=== PATIENT | female | born 1975 | race Caucasian/White ===

== ENCOUNTER → 2016-12-05 | Outpatient (CLI) | payer OTHER | END | disposition home or self-care (01) | LOC: LABWHC1 06:42 | PROVIDERS: ATTEND Obstetrics & Gynecology Reproductive Endocrinology | DX: N97.8 Female infertility of other origin (principal) | CPT/HCPCS: 36415; 84144 ==

== ENCOUNTER → 2016-12-16 | Outpatient (CLI) | payer OTHER | END | disposition home or self-care (01) | LOC: LABWHC1 06:46 | PROVIDERS: ATTEND Obstetrics & Gynecology Reproductive Endocrinology | DX: Z32.00 Encounter for pregnancy test, result unknown (principal) | CPT/HCPCS: 36415; 84144; 84702 ==

== ENCOUNTER → 2016-12-18 | Outpatient (CLI) | payer OTHER ==
[2016-12-18 08:20] LABS: HCG,Quantitative Serum 4.8 mIU/mL
== END | disposition home or self-care (01) ==
LOC: LABWHC1 07:01
PROVIDERS: ATTEND Obstetrics & Gynecology
DX: Z13.29 Encounter for screening for other suspected endocrine disorder (principal)
CPT/HCPCS: 36415; 84144; 84443; 84702

== ENCOUNTER → 2017-01-06 | Outpatient (CLI) | payer OTHER | END | disposition home or self-care (01) | LOC: LABWHC1 06:46 | PROVIDERS: ATTEND Obstetrics & Gynecology Reproductive Endocrinology | DX: N97.8 Female infertility of other origin (principal) | CPT/HCPCS: 36415; 84144 ==

== ENCOUNTER → 2017-01-17 | Outpatient (CLI) | payer OTHER | END | disposition home or self-care (01) | LOC: LABWHC1 09:11 | PROVIDERS: ATTEND Obstetrics & Gynecology Reproductive Endocrinology | DX: Z32.00 Encounter for pregnancy test, result unknown (principal) | CPT/HCPCS: 36415; 84144; 84702 ==

== ENCOUNTER → 2017-01-20 | Outpatient (CLI) | payer OTHER | END | disposition home or self-care (01) | LOC: LABWHC1 09:25 | PROVIDERS: ATTEND Obstetrics & Gynecology Reproductive Endocrinology | DX: O09.01 Supervision of pregnancy with history of infertility, first trimester (principal); Z3A.00 Weeks of gestation of pregnancy not specified | CPT/HCPCS: 36415; 84144; 84443; 84702 ==

== ENCOUNTER → 2017-02-03 | Outpatient (CLI) | payer OTHER | END | disposition home or self-care (01) | LOC: LABWHC1 10:49 | PROVIDERS: ATTEND Obstetrics & Gynecology Reproductive Endocrinology | DX: O09.01 Supervision of pregnancy with history of infertility, first trimester (principal); Z3A.00 Weeks of gestation of pregnancy not specified | CPT/HCPCS: 36415; 84144; 84702 ==

== ENCOUNTER 2017-09-19 06:03 | Inpatient (IN) | payer OTHER ==
[2017-09-16 14:41] VITALS: BMI 23.8
[2017-09-19] MEDS ORDERED: ceFAZolin IN SWFI 2 GM/20 ML SYRINGE IVP ONE (06:16)
[2017-09-19] MEDS ORDERED: LACTATED RINGERS 1,000 ML IV ONE (06:16)
[2017-09-19] MEDS ORDERED: CITRIC ACID-SODIUM CITRATE 15 ML CUP PO ONE (06:16)
[2017-09-19 06:52] LABS: Basophils # (A) 0.1 k/uL (0-0.2); Basophils % (A) 1 %; Eosinophils # (A) 0.1 k/uL (0-0.7); Eosinophils % (A) 1 %; HGB 11.8 gm/dL (11.4-16.0); Lymphocytes # (A) 2.9 k/uL (1.0-4.8); Lymphocytes % (A) 30 %; MCH 32.3 pg (25.0-35.0); MCHC 34.8 g/dL (31.0-37.0); MCV 92.9 fL (80.0-100.0); Mean Platelet Volume 8.3; Monocytes # (A) 0.4 k/uL (0-1.0); Monocytes % (A) 4 %; Neutrophils # (A) 6.2 k/uL (1.3-7.7); Neutrophils % (A) 63 %; Platelet Count 204 k/uL (150-450); RBC 3.66 m/uL (3.80-5.40); RDW 13.2 % (11.5-15.5); WBC 9.8 k/uL (3.8-10.6)
[2017-09-19] MEDS ORDERED: ONDANSETRON 4 MG/2 ML VIAL ONE (07:56)
[2017-09-19] MEDS ORDERED: LACTATED RINGERS 1,000 ML BAG IV ONE (07:56)
[2017-09-19] MEDS ORDERED: PHENYLEPHRINE-0.9% NACL SYG 1 MG/10 ML SYRINGE ONE (07:56)
[2017-09-19] MEDS ORDERED: KETOROLAC 30 MG/ML 1 ML VIAL ONE (07:56)
[2017-09-19] MEDS ORDERED: OXYTOCIN 10 UNIT/ML 1 ML VIAL ONE (07:56)
[2017-09-19] MEDS ORDERED: MORPHINE SULFATE (PF) 0.3 MG/0.3 ML SYR ONE (07:56)
[2017-09-19] MEDS ORDERED: diphenhydrAMINE 25 MG CAP PO PRN (08:51)
[2017-09-19] MEDS ORDERED: LANOLIN CREAM 5 GM TUBE TOPICAL PRN (08:51)
[2017-09-19] MEDS ORDERED: ZOLPIDEM 5 MG TAB PO PRN (08:51)
[2017-09-19] MEDS ORDERED: diphenhydrAMINE 50 MG CAP PO PRN (08:51)
[2017-09-19] MEDS ORDERED: ONDANSETRON 4 MG/2 ML VIAL IVP PRN (08:51)
[2017-09-19] MEDS ORDERED: NALOXONE 0.4 MG/ML 1 ML VIAL IV PRN ×2 (08:51→09:08)
[2017-09-19] MEDS ORDERED: ACETAMINOPHEN TAB 325 MG TAB PO PRN (08:51)
[2017-09-19] MEDS ORDERED: METOCLOPRAMIDE 5 MG/ML 2 ML VIAL IVP PRN (08:51)
[2017-09-19] MEDS ORDERED: diphenhydrAMINE 50 MG/ML 1 ML VIAL IVP PRN ×2 (08:51)
[2017-09-19] MEDS ORDERED: ACETAMINOPHEN IV (For NPO) 1,000 MG in EMPTY BAG 1 BAG IVPB STA (08:53)
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
[2017-09-19] MEDS ORDERED: OXYTOCIN 20 UNITS/1000 ML NS 1,000 ML IV SCH (09:00)
[2017-09-19] MEDS ORDERED: IBUPROFEN IV 800 MG in SODIUM CHLORIDE 0.9% 250 ML IV ONE (09:00)
--- NOTE | 2017-09-19 09:02 | P.OP ---
Date of Procedure: 09/19/17 Preoperative Diagnosis: IUP @ 39 1/7 weeks, h/o 1 desires repeat Postoperative Diagnosis: Same Procedure(s) Performed: Repeat section Anesthesia: spinal Surgeon: Sarah Walters [employer] Supervisor #1: Violette Hines Estimated Blood Loss (ml): 700 IV fluids (ml): 1,400 Urine output (ml): 200 Pathology: other (Placenta) Condition: stable Disposition: observation Indications for Procedure: History of 1 Operative Findings: Normal uterus tubes and ovaries were appreciated Description of Procedure: The patient was prepped and draped in the usual fashion after spinal anesthesia was administered by anesthesia. A Pfannenstiel incision was made and extended of the abdominal cavity without difficulty. The bladder peritoneum was elevated and incised and reflected distally. A 2 cm incision was made in the transverse plane of the lower uterine segment to enter the uterus at which time clear fluid was noted. The incision was extended in both directions bluntly. The head was encountered within the field and delivered up and through the incision where the nose and mouth were thoroughly suctioned. Remainder of the was delivered onto the surgical field where the cord was doubly clamped, cut, and the was passed to awaiting RN, weight 7 lbs. 2 oz. at 820am with weight and Apgars 8-9 at one and 5 minutes respectively as noted above. A segment of cord was then doubly clamped, cut, and set aside should cord gases become necessary. The placenta was delivered manually, intact, and was grossly normal with a grossly normal three-vessel cord. The uterus was exteriorized and the interior cavity of the uterus swept of any remaining placental and membranous fragments with a laparotomy sponge. The margins of the incision were grasped with allis clamps and the incision closed in 2 layers. First layer was a running locking layer of 0 vicryl from margin to margin followed by a second layer of imbricating 0 vicryl from margin to margin. Any small points of bleeding were then made hemostatic with the Bovie. Once hemostasis was achieved, the posterior cul-de-sac was suctioned with a guard and the uterine and ovarian findings are as noted above. The uterus was replaced within the abdominal cavity and the gutters swept of any remaining blood fluid or clot. The incision was again reexamined and hemostasis was noted to be excellent. Any small point of bleeding were made hemostatic with the Bovie. Once hemostasis was achieved the parietal peritoneum was loosely reapproximated. The layer of muscles were examined and made hemostatic with the Bovie. Attention was then turned to the fascia which was closed with a running stitches of 0 Vicryl proceeding from one lateral edge to the other edge.. The subcutaneous tissues were irrigated, made hemostatic with the Bovie. The skin was reapproximated with 4-0 vicryl. Estimated blood loss for the case was approximately 700 mL. All sponge instrument and needle counts are correct. There were no complications. The patient tolerated the procedure well and proceeded to the recovery room in stable condition. Both mother and are resting comfortably in recovery.
[2017-09-19] MEDS: LACTATED RINGERS 1,000 ML IV SCH ×5 (16:45→23:52)
[2017-09-19] MEDS: PRENATAL VIT-IRON-FOLIC ACID 1 EACH CAP PO SCH (16:48)
[2017-09-19] MEDS: SENNOSIDES-DOCUSATE SODIUM 1 EACH TAB PO SCH (19:44)
--- NOTE | 2017-09-20 07:50 | P.PNOBGPC ---
Subjective - Subjective Principal diagnosis: Postop day 1 Patient reports: Reports appetite normal, Reports voiding normally, Reports pain well controlled, Reports ambulating normally, Denies dizzy ambulation, Denies nauseated : doing well, nursing well Objective - Vital Signs Latest vital signs: Vital Signs Temp Pulse Resp BP Pulse Ox 09/20/17 06:00 16 09/20/17 04:00 98.1 F 57 L 16 111/59 97 09/20/17 02:00 16 09/19/17 23:48 97.6 F 63 16 110/64 97 09/19/17 22:00 16 97 09/19/17 20:00 97.6 F 63 16 104/64 98 09/19/17 19:01 98 09/19/17 18:00 16 96 09/19/17 16:00 98 F 57 L 16 104/58 09/19/17 14:08 99 09/19/17 14:00 16 09/19/17 12:08 16 09/19/17 12:00 97.9 F 59 L 16 94/49 09/19/17 10:51 98.4 F 64 16 95/51 09/19/17 10:21 97.5 F L 58 L 16 99/56 09/19/17 10:08 16 99 09/19/17 09:51 56 L 16 104/60 09/19/17 09:35 98.0 F 51 L 16 105/61 09/19/17 09:20 60 16 106/60 09/19/17 09:08 16 99 09/19/17 09:06 97.6 F 59 L 16 99/59 09/19/17 08:51 97.6 F 64 16 104/59 Intake and Output 09/19/17 09/20/17 09/20/17 22:59 06:59 14:59 Output Total 1250 1200 Balance -1250 -1200 Output: Urine 1250 1200 Straight 950 800 Uretheral ([place]) 300 Other: # Voids 0 2 - Exam Extremities: Present: normal, edema Abdomen: Present: normal appearance, soft. Absent: tenderness Incision: Present: intact, dressed Uterus: Present: normal, firm. Absent: tenderness Assessment and Plan (1) H/O section Current Visit: Yes Status: Acute Code(s): Z98.891 - HISTORY OF UTERINE SCAR FROM PREVIOUS SURGERY SNOMED Code(s): 887290546 (2) Term Current Visit: Yes Status: Acute Code(s): Z34.80 - ENCOUNTER FOR SUPRVSN OF NORMAL , UNSP TRIMESTER SNOMED Code(s): 83960327 (3) S/P section Narrative/Plan: Postop day 1 status post scheduled repeat primary low transverse section. She is recovering well. Anticipate discharge home tomorrow. Current Visit: Yes Status: Acute Code(s): Z98.891 - HISTORY OF UTERINE SCAR FROM PREVIOUS SURGERY SNOMED Code(s): 173222479
[2017-09-20] MEDS ORDERED: OXYTOCIN 10 UNIT/ML 1 ML VIAL ONE (07:56)
[2017-09-20] MEDS ORDERED: ONDANSETRON 4 MG/2 ML VIAL ONE (07:56)
[2017-09-20] MEDS ORDERED: LACTATED RINGERS 1,000 ML BAG IV ONE (07:56)
[2017-09-20] MEDS ORDERED: MORPHINE SULFATE (PF) 0.3 MG/0.3 ML SYR ONE (07:56)
[2017-09-20] MEDS ORDERED: KETOROLAC 30 MG/ML 1 ML VIAL ONE (07:56)
[2017-09-20] MEDS ORDERED: PHENYLEPHRINE-0.9% NACL SYG 1 MG/10 ML SYRINGE ONE (07:56)
[2017-09-20 08:37] LABS: Basophils % (A) 0 %; Eosinophils # (A) 0.1 k/uL (0-0.7); Eosinophils % (A) 1 %; HCT 33.2 % (34.0-46.0); HGB 11.7 gm/dL (11.4-16.0); Lymphocytes # (A) 1.6 k/uL (1.0-4.8); Lymphocytes % (A) 13 %; MCH 32.7 pg (25.0-35.0); MCHC 35.4 g/dL (31.0-37.0); MCV 92.4 fL (80.0-100.0); Mean Platelet Volume 8.1; Monocytes # (A) 0.5 k/uL (0-1.0); Monocytes % (A) 4 %; Neutrophils # (A) 10.5 k/uL (1.3-7.7); Neutrophils % (A) 82 %; Platelet Count 205 k/uL (150-450); RBC 3.59 m/uL (3.80-5.40); RDW 13.1 % (11.5-15.5); WBC 12.8 k/uL (3.8-10.6)
[2017-09-20] MEDS: SENNOSIDES-DOCUSATE SODIUM 1 EACH TAB PO SCH ×2 (09:09→21:17)
[2017-09-20] MEDS: PRENATAL VIT-IRON-FOLIC ACID 1 EACH CAP PO SCH (20:14)
[2017-09-20] MEDS: LACTATED RINGERS 1,000 ML IV SCH (20:15)
[2017-09-20] MEDS: IBUPROFEN 600 MG TAB PO PRN (21:17)
[2017-09-20 23:59] VITALS: RESP 16
[2017-09-21] MEDS: IBUPROFEN 600 MG TAB PO PRN (05:56)
[2017-09-21 08:31] VITALS: BP 109/66; PULSE 63; TEMP 98
--- NOTE | 2017-09-21 09:37 | P.DS ---
Providers Date of admission: 09/19/17 06:03 Expected date of discharge: 09/21/17 Attending physician: Sarah Walters Primary care physician: Stated None - Discharge Diagnosis(es) (1) H/O section Current Visit: Yes Status: Acute (2) Term Current Visit: Yes Status: Acute (3) S/P section Current Visit: Yes Status: Acute (4) Advanced maternal age (AMA) in Current Visit: Yes Status: Acute Hospital Course: This is a 41-year-old 3 now para 2012 woman who is admitted for scheduled repeat low transverse section at 39 and one sevenths weeks gestation. She was admitted on 09/19/2017 and went to the operating room where she underwent an uncomplicated repeat low transverse section. Findings at the time of surgery were significant for a female infant weighing 7 lbs. 2 oz. with Apgars of 8 at 1 minute and 9 at 5 minutes. See operative report for details. Her postoperative course was entirely unremarkable. By postoperative day #1 she was ambulating and voiding without difficulty and tolerating a general diet. Her pain was well-controlled. By postoperative day #2 she continued to do well. Her incision was well healing, her vital signs were stable. She was therefore discharged home with routine instructions for postoperative care and follow-up. Procedures: Repeat low transverse section Patient Condition at Discharge: Good Plan - Discharge Summary New Discharge Prescriptions: New Ibuprofen [Motrin] 600 mg PO Q6HR PRN tab PRN Reason: Mild Pain Or Fever >= 100.5 No Action Pnv No.95/Ferrous Fum/Folic AC [ Multivitamin Tablet] 1 each PO DAILY Discharge Medication List Pnv No.95/Ferrous Fum/Folic AC [ Multivitamin Tablet] 1 each PO DAILY [History] Ibuprofen [Motrin] 600 mg PO Q6HR PRN tab 09/21/17 [Rx] Follow up Appointment(s)/Referral(s): Sarah Walters DO [Doctor of Osteopathic Medicine] - 1 Week Activity/Diet/Wound Care/Special Instructions: Follow-up in 2 weeks after surgery in the office. Call the office with any concerning signs or symptoms including fever greater than 101, severe abdominal pain, heavy vaginal bleeding, signs of wound infection, increased swelling or redness of the lower extremities, signs of depression. No driving for 2 weeks after surgery. No heavy lifting or vigorous activity until reevaluated in the office. No intercourse for 6 weeks after delivery. Discharge Disposition: HOME SELF-CARE
== END 2017-09-21 11:30 | disposition home or self-care (01) | DRG 766 ==
LOC: 4FBP 06:03
PROVIDERS: ADMIT Obstetrics & Gynecology Obstetrics; ATTEND Obstetrics & Gynecology Obstetrics
PROC: 10D00Z1 Extraction of Products of Conception, Low, Open Approach (ICD-10-PCS; principal; 2017-09-19 08:00)
DX: O34.211 Maternal care for low transverse scar from previous cesarean delivery (principal); Z37.0 Single live birth; Z3A.39 39 weeks gestation of pregnancy; Z87.891 Personal history of nicotine dependence
CPT/HCPCS: 85025; 86850; 86900; 86901; 88307; 94760

== ENCOUNTER → 2022-12-03 | Outpatient (CLI) | payer OTHER ==
[2022-12-03 15:47] LABS: Chol/HDL Ratio 2.66 Ratio; Glucose 91 mg/dL (70-110); LDL Cholesterol,Calculated 93.3 mg/dL (0.0-131.0)
== END | disposition home or self-care (01) ==
LOC: LABWHC1 09:34
PROVIDERS: ATTEND Family Medicine
DX: Z00.00 Encounter for general adult medical examination without abnormal findings (principal)
CPT/HCPCS: 36415; 80061; 82947

== ENCOUNTER → 2024-11-15 | Outpatient (CLI) | payer OTHER ==
--- NOTE | 2024-11-15 14:17 | US ---
EXAMINATION TYPE: US arterial UE single level DATE OF EXAM: 11/15/2024 2:04 PM CLINICAL INDICATION: Female, 49 years old with history of L81.9 DISCOLORATION PIGMENTATION; bumps on ventral hand, discoloration/ finger turns blue with certain maneuvers TECHNIQUE: Systolic pressures were taken of the upper extremity arteries with wrist brachial indices calculated. History of: Smoker: Yes Hypertension: No Diabetic: No Hyperlipidemia: No TIA/CVA: No Previous Vascular Surgery: No CAD: No AL: No Vascular Ulcers: No Claudication: No Gangrene: No FINDINGS: Doppler Waveforms: Right: Axillary: Multiphasic Brachial: Multiphasic Radial: Multiphasic Ulnar: Multiphasic Left: Axillary: Multiphasic Brachial: Multiphasic Radial: Multiphasic Ulnar: Multiphasic Right: Brachial: 107 Radial artery: 112 Ulnar Artery: 114 Left: Brachial: 101 Radial artery: 108 Ulnar Artery: 95 Wrist Brachial Indices: Right: 1.07 Left: 1.01 IMPRESSION: Normal wrist brachial indices bilaterally. [facility], , 11/15/2024 2:14 PM
== END | disposition home or self-care (01) ==
LOC: RADUSWWP 12:41
PROVIDERS: ATTEND Family Medicine
DX: L81.9 Disorder of pigmentation, unspecified (principal); L72.0 Epidermal cyst
CPT/HCPCS: 93922

== ENCOUNTER → 2024-12-20 | Outpatient (CLI) | payer OTHER ==
--- NOTE | 2024-12-20 17:44 | XR ---
EXAMINATION TYPE: XR hand complete bilateral DATE OF EXAM: 12/20/2024 1:11 PM COMPARISON: None CLINICAL INDICATION: Female, 49 years old with history of M67.441, M67.442; PHH, intermittent painful bumps on the fingers for years. TECHNIQUE: 3 views each side FINDINGS: 2 mm rounded calcific density within the pulp of the left fourth finger at the level of the middle phalanx. Otherwise, no other soft tissue calcifications or other discrete soft tissue abnorma lity is seen. Mild degenerative change first CMC joint on both sides. No marginal erosions. No acute fracture, subluxation, or dislocation is seen. IMPRESSION: 1. 2 mm rounded calcification in the pulp of the left fourth finger at the level of the middle phalan x. Exact etiology is clear. Suspect a tiny phlebolith. 2. Mild early degenerative change at the base of the thumbs. Otherwise, no significant abnormality is seen on either side. [facility], , 12/20/2024 5:42 PM
== END | disposition home or self-care (01) ==
LOC: RADXRMAIN 12:44
PROVIDERS: ATTEND Family Medicine
DX: M19.042 Primary osteoarthritis, left hand (principal); M19.041 Primary osteoarthritis, right hand; M67.441 Ganglion, right hand; M67.442 Ganglion, left hand